=== PATIENT | male | born 1950 | race Caucasian/White ===

== ENCOUNTER 2016-03-14 07:16 | Outpatient (CLI) | payer MEDICARE ==
[2015-06-29 20:00] VITALS: BP 150/89
== END 2016-03-14 07:17 ==
LOC: LAB 07:16
PROVIDERS: ATTEND Internal Medicine Cardiovascular Disease
DX: I48.1 Persistent atrial fibrillation (principal)
CPT/HCPCS: 36415; 85610

== ENCOUNTER 2016-05-19 07:14 | Outpatient (CLI) | payer MEDICARE ==
[2015-06-29 20:00] VITALS: BP 150/89
== END 2016-05-19 07:15 ==
LOC: LAB 07:14
PROVIDERS: ATTEND Internal Medicine Cardiovascular Disease
DX: Z51.81 Encounter for therapeutic drug level monitoring (principal); Z79.01 Long term (current) use of anticoagulants; I48.1 Persistent atrial fibrillation
CPT/HCPCS: 36415; 85610

== ENCOUNTER 2016-06-07 10:17 | Outpatient (CLI) | payer MEDICARE ==
[2015-06-29 20:00] VITALS: BP 150/89
== END 2016-06-07 10:18 ==
LOC: LAB 10:17
PROVIDERS: ATTEND Internal Medicine Cardiovascular Disease
DX: Z51.81 Encounter for therapeutic drug level monitoring (principal); Z79.01 Long term (current) use of anticoagulants; I48.1 Persistent atrial fibrillation
CPT/HCPCS: 36415; 85610

== ENCOUNTER 2016-08-02 12:49 | Outpatient (CLI) | payer MEDICARE ==
[2015-06-29 20:00] VITALS: BP 150/89
== END 2016-08-02 12:50 ==
LOC: LAB 12:49
PROVIDERS: ATTEND Internal Medicine Cardiovascular Disease
DX: Z95.4 Presence of other heart-valve replacement (principal)
CPT/HCPCS: 36415; 85610

== ENCOUNTER 2016-08-15 07:01 | Outpatient (CLI) | payer MEDICARE ==
[2015-06-29 20:00] VITALS: BP 150/89
== END 2016-08-15 07:02 ==
LOC: LAB 07:01
PROVIDERS: ATTEND Internal Medicine Cardiovascular Disease
DX: Z79.01 Long term (current) use of anticoagulants (principal)
CPT/HCPCS: 36415; 85610

== ENCOUNTER 2016-08-24 07:04 | Outpatient (CLI) | payer MEDICARE ==
[2015-06-29 20:00] VITALS: BP 150/89
== END 2016-08-24 07:10 ==
LOC: LAB 07:04
PROVIDERS: ATTEND Internal Medicine Cardiovascular Disease
DX: Z79.01 Long term (current) use of anticoagulants (principal)
CPT/HCPCS: 36415; 85610

== ENCOUNTER 2016-09-21 07:13 | Outpatient (CLI) | payer MEDICARE ==
[2015-06-29 20:00] VITALS: BP 150/89
== END 2016-09-21 07:14 ==
LOC: LAB 07:13
PROVIDERS: ATTEND Internal Medicine Cardiovascular Disease
DX: Z79.01 Long term (current) use of anticoagulants (principal)
CPT/HCPCS: 36415; 85610

== ENCOUNTER 2016-10-05 07:02 | Outpatient (CLI) | payer MEDICARE ==
[2015-06-29 20:00] VITALS: BP 150/89
== END 2016-10-05 07:03 ==
LOC: LAB 07:02
PROVIDERS: ATTEND Internal Medicine Cardiovascular Disease
DX: Z79.01 Long term (current) use of anticoagulants (principal)
CPT/HCPCS: 36415; 85610

== ENCOUNTER 2016-10-19 07:09 | Outpatient (CLI) | payer MEDICARE ==
[2015-06-29 20:00] VITALS: BP 150/89
== END 2016-10-19 07:15 ==
LOC: LAB 07:09
PROVIDERS: ATTEND Internal Medicine Cardiovascular Disease
DX: Z79.01 Long term (current) use of anticoagulants (principal)
CPT/HCPCS: 36415; 85610

== ENCOUNTER 2016-11-03 07:04 | Outpatient (CLI) | payer MEDICARE ==
[2015-06-29 20:00] VITALS: BP 150/89
== END 2016-11-03 07:05 ==
LOC: LAB 07:04
PROVIDERS: ATTEND Internal Medicine Cardiovascular Disease
DX: Z79.01 Long term (current) use of anticoagulants (principal)
CPT/HCPCS: 36415; 85610

== ENCOUNTER 2017-01-02 08:41 | Outpatient (CLI) | payer MEDICARE ==
[2015-06-29 20:00] VITALS: BP 150/89
== END 2017-01-02 08:42 ==
LOC: LAB 08:41
PROVIDERS: ATTEND Internal Medicine Cardiovascular Disease
DX: Z79.01 Long term (current) use of anticoagulants (principal)
CPT/HCPCS: 36415; 85610

== ENCOUNTER 2017-02-06 07:10 | Outpatient (CLI) | payer MEDICARE ==
[2015-06-29 20:00] VITALS: BP 150/89
== END 2017-02-06 07:11 ==
LOC: LAB 07:10
PROVIDERS: ATTEND Internal Medicine Cardiovascular Disease
DX: Z79.01 Long term (current) use of anticoagulants (principal)
CPT/HCPCS: 36415; 85610

== ENCOUNTER 2017-02-15 07:05 | Outpatient (CLI) | payer MEDICARE ==
[2015-06-29 20:00] VITALS: BP 150/89
== END 2017-02-15 09:04 ==
LOC: LAB 07:05
PROVIDERS: ATTEND Internal Medicine Cardiovascular Disease
DX: Z79.01 Long term (current) use of anticoagulants (principal)
CPT/HCPCS: 36415; 85610

== ENCOUNTER 2017-02-21 08:53 | Outpatient (CLI) | payer MEDICARE ==
[2015-06-29 20:00] VITALS: BP 150/89
== END 2017-02-21 08:54 ==
LOC: LAB 08:53
PROVIDERS: ATTEND Internal Medicine Cardiovascular Disease
DX: Z79.01 Long term (current) use of anticoagulants (principal)
CPT/HCPCS: 36415; 85610

== ENCOUNTER 2017-03-07 07:09 | Outpatient (CLI) | payer MEDICARE ==
[2015-06-29 20:00] VITALS: BP 150/89
== END 2017-03-07 07:10 ==
LOC: LAB 07:09
PROVIDERS: ATTEND Internal Medicine Cardiovascular Disease
DX: Z79.01 Long term (current) use of anticoagulants (principal)
CPT/HCPCS: 36415; 85610

== ENCOUNTER 2017-04-26 07:13 | Outpatient (CLI) | payer MEDICARE ==
[2015-06-29 20:00] VITALS: BP 150/89
== END 2017-04-26 07:14 ==
LOC: LAB 07:13
PROVIDERS: ATTEND Internal Medicine Cardiovascular Disease
DX: Z79.01 Long term (current) use of anticoagulants (principal)
CPT/HCPCS: 36415; 85610

== ENCOUNTER 2017-05-11 10:02 | Outpatient (CLI) | payer MEDICARE ==
[2015-06-29 20:00] VITALS: BP 150/89
== END 2017-05-11 10:03 ==
LOC: LAB 10:02
PROVIDERS: ATTEND Internal Medicine Cardiovascular Disease
DX: Z79.01 Long term (current) use of anticoagulants (principal)
CPT/HCPCS: 36415; 85610

== ENCOUNTER 2017-05-24 10:50 | Outpatient (CLI) | payer MEDICARE ==
[2015-06-29 20:00] VITALS: BP 150/89
== END 2017-05-24 10:52 ==
LOC: LAB 10:50
PROVIDERS: ATTEND Internal Medicine Cardiovascular Disease
DX: Z79.01 Long term (current) use of anticoagulants (principal)
CPT/HCPCS: 36415; 85610

== ENCOUNTER 2017-06-29 10:51 | Outpatient (CLI) | payer MEDICARE ==
[2015-06-29 20:00] VITALS: BP 150/89
== END 2017-06-29 10:52 ==
LOC: LAB 10:51
PROVIDERS: ATTEND Internal Medicine Cardiovascular Disease
DX: Z79.01 Long term (current) use of anticoagulants (principal)
CPT/HCPCS: 36415; 85610

== ENCOUNTER 2017-07-20 14:13 | Outpatient (CLI) | payer MEDICARE ==
[2015-06-29 20:00] VITALS: BP 150/89
== END 2017-07-20 14:14 ==
LOC: LAB 14:13
PROVIDERS: ATTEND Internal Medicine Cardiovascular Disease
DX: Z79.01 Long term (current) use of anticoagulants (principal)
CPT/HCPCS: 36415; 85610

== ENCOUNTER 2017-08-03 08:12 | Outpatient (CLI) | payer MEDICARE ==
[2015-06-29 20:00] VITALS: BP 150/89
== END 2017-08-03 08:13 ==
LOC: LAB 08:12
PROVIDERS: ATTEND Internal Medicine Cardiovascular Disease
DX: Z79.01 Long term (current) use of anticoagulants (principal)
CPT/HCPCS: 36415; 85610

== ENCOUNTER 2017-10-04 08:49 | Outpatient (CLI) | payer MEDICARE ==
[2015-06-29 20:00] VITALS: BP 150/89
== END 2017-10-04 08:50 ==
LOC: LAB 08:49
PROVIDERS: ATTEND Internal Medicine Cardiovascular Disease
DX: Z79.01 Long term (current) use of anticoagulants (principal)
CPT/HCPCS: 36415; 85610

== ENCOUNTER → 2017-10-12 | Outpatient (CLI) | payer MEDICARE ==
[2015-06-29 20:00] VITALS: BP 150/89
[2017-10-12 13:14] LABS: BASOPHILS % 0.6 (0.0-1.5); EOSINOPHILS % 2.9 % (0.0-6.8); MEAN CORPUSCULAR HEMOGLOBIN 29.5 pg (28.0-34.0); MEAN CORPUSCULAR VOLUME 87.3 fl (80.0-100.0); MONOCYTES % 4.6 % (0.0-11.0)
[2017-10-13 00:21] LABS: TOTAL PROTEIN 7.4 g/dL (6.0-8.5)
== END ==
LOC: LAB 09:08
PROVIDERS: ATTEND Internal Medicine Cardiovascular Disease
DX: Z79.01 Long term (current) use of anticoagulants (principal); E78.00 Pure hypercholesterolemia, unspecified; I10 Essential (primary) hypertension; I25.10 Atherosclerotic heart disease of native coronary artery without angina pectoris; I25.5 Ischemic cardiomyopathy; I34.0 Nonrheumatic mitral (valve) insufficiency; I48.2 Chronic atrial fibrillation
CPT/HCPCS: 36415; 80053; 80061; 84443; 85025; 85610

== ENCOUNTER 2018-10-11 08:02 | Outpatient (CLI) | payer MEDICARE ==
[2015-06-29 20:00] VITALS: BP 150/89
[2018-10-11 08:35] LABS: BASOPHILS % 0.6 % (0.0-1.5); NEUTROPHILS # 5.9 # k/uL (1.4-7.7)
[2018-10-11 09:28] LABS: eGFR (Non-African) > 60
[2018-10-11 09:29] LABS: HDL 47 mg/dL (>40)
== END 2018-10-11 08:04 ==
LOC: LAB 08:02
PROVIDERS: ATTEND Nurse Practitioner
DX: E78.5 Hyperlipidemia, unspecified (principal); I10 Essential (primary) hypertension; I25.10 Atherosclerotic heart disease of native coronary artery without angina pectoris; I25.5 Ischemic cardiomyopathy; I34.0 Nonrheumatic mitral (valve) insufficiency; I48.0 Paroxysmal atrial fibrillation
CPT/HCPCS: 36415; 80053; 80061; 84443; 85025